=== PATIENT | female | born 1990 | race Caucasian/White ===

== ENCOUNTER 2017-12-18 12:20 | Emergency (ER) | payer OTHER ==
[2017-12-18 13:25] VITALS: BP 128/98
--- NOTE | 2017-12-18 14:01 | ED ---
Complex/Multi-Sys Presentation - HPI Summary HPI Summary: Patient is a 27-year-old female presenting to the ED with a variety of complaints. She states she has been taking Suboxone for about 3 weeks and a beta jai for about 4 weeks and since that time, feels like she has been developing right arm pain, posterior neck tenderness, bilateral leg swelling and face swelling. She states she has excess fatigue as well. She endorses a history of carpal tunnel as well as shooting heroin in the right arm and neck pain years. She states she has anxiety about her health and understands all this could be nothing, she wanted to make sure that she was not "dying." - History Of Current Complaint Chief Complaint: EDGeneral Time Seen by Provider: 12/18/17 12:25 Hx Obtained From: Patient Onset/Duration: Sudden Onset Timing: Constant Severity Currently: Moderate Severity Initially: Moderate Associated Signs And Symptoms: Negative: Confusion, Agitation, Dizziness, Weakness - Allergies/Home Medications Allergies/Adverse Reactions: Allergies Allergy/AdvReac Type Severity Reaction Status Date / Time No Known Allergies Allergy Verified 12/18/17 12:23 PMH/Surg Hx/FS Hx/Imm Hx Previously Healthy: Yes - Immunization History Hx Pertussis Vaccination: No Immunizations Up to Date: Yes Infectious Disease History: No Infectious Disease History: Denies: Traveled Outside the [place] in Last 30 Days - Social History Occupation: Unemployed Lives: Alone - [employer] Alcohol Use: None Hx Substance Use: No Substance Use Type: Reports: None Smoking Status (MU): Former Smoker Review of Systems Negative: Fever, Chills Negative: Palpitations, Chest Pain Negative: Shortness Of Breath, Cough Negative: Abdominal Pain, Vomiting, Diarrhea, Nausea Genitourinary: Negative Positive: no symptoms reported, see HPI Positive: Myalgia - R arm pain x 3 months. Negative: Arthralgia Positive: Other - swelling in feet bilaterally Neurological: Negative All Other Systems Reviewed And Are Negative: Yes Physical Exam Triage Information Reviewed: Yes Vital Signs On Initial Exam: Initial Vitals Temp Pulse Resp BP Pulse Ox 97.5 F 67 14 134/94 96 12/18/17 12:23 12/18/17 12:23 12/18/17 12:23 12/18/17 12:23 12/18/17 12:23 Vital Signs Reviewed: Yes Appearance: Positive: Well-Appearing, Well-Nourished Skin: Positive: Warm, Skin Color Reflects Adequate Perfusion Head/Face: Positive: Normal Head/Face Inspection Eyes: Positive: EOMI, MARÍA, Conjunctiva Clear Neck: Positive: Supple, No Lymphadenopathy Respiratory/Lung Sounds: Positive: Clear to Auscultation, Breath Sounds Present Cardiovascular: Positive: RRR, Pulses are Symmetrical in both Upper and Lower Extremities Musculoskeletal: Positive: Normal, Strength/ROM Intact Neurological: Positive: Sensory/Motor Intact, Alert, Oriented to Person Place, Time, Speech Normal Psychiatric: Positive: Normal AVPU Assessment: Alert Diagnostics - Vital Signs Vital Signs Temp Pulse Resp BP Pulse Ox 12/18/17 13:24 98.0 F 86 18 128/98 97 12/18/17 12:36 74 11 98 12/18/17 12:23 97.5 F 67 14 134/94 96 - Laboratory Lab Statement: Any lab studies that have been ordered have been reviewed, and results considered in the medical decision making process. Complex Multi-Symp Course/Dx Course Of Treatment: On physical examination, there is no evidence of face or leg swelling. The tenderness over the maxillary sinuses. No tenderness to the posterior cervical spine or bilateral arms. EOMI/PERRLA. TMs without erythema or signs of infection. Full range of motion bilaterally in the upper and lower extremities. No abdominal pain on palpation. Lungs CTA. RRR. Patient appears well and nontoxic. I have reassured her that I find nothing on physical examination which she should be concerned about. She is asking if she should switch from Suboxone to Subutex. I've encouraged her to follow-up with the [facility] C[facility] at [facility] for further evaluation and decision making. Lab work obtained 3 days ago and all WNL, so we'll not repeat today. - Diagnoses Provider Diagnoses: Fatigue Discharge - Sign-Out/Discharge Documenting (check all that apply): Patient Departure - Discharge Plan Condition: Stable Disposition: HOME Referrals: No Primary Care Phys,NOPCP [Primary Care Provider] - Additional Instructions: Continue your at home medications Return for any worsening symptoms Discuss with your SPRING COVERER regarding a change in medications - Billing Disposition and Condition Condition: STABLE Disposition: Home
== END 2017-12-18 13:25 | disposition home or self-care (01) ==
LOC: ED 12:20
DX: R53.83 Other fatigue (principal); Z87.891 Personal history of nicotine dependence
CPT/HCPCS: 99282

== ENCOUNTER 2017-12-27 22:07 | Emergency (ER) | payer OTHER ==
[2017-12-28] MEDS ORDERED: Ketorolac INJ* 60 MG/2 ML VIAL IM ONE (01:46)
--- NOTE | 2017-12-28 02:45 | RAD ---
EXAM: CT Cervical Spine Without Intravenous Contrast EXAM DATE/TIME: 12/28/2017 2:09 AM CLINICAL HISTORY: 27 years old, female; Signs and symptoms; Numbness; Additional info: B/l arm numbness TECHNIQUE: Axial computed tomography images of the cervical spine without intravenous contrast. All CT scans at this facility use at least one of these dose optimization techniques: automated exposure control; mA and/or kV adjustment per patient size (includes targeted exams where dose is matched to clinical indication); or iterative reconstruction. Coronal and sagittal reformatted images were created and reviewed. COMPARISON: No relevant prior studies available. FINDINGS: Vertebrae: No acute fracture or spondylolisthesis. Soft tissues: Unremarkable. DISCS/SPINAL CANAL/NEURAL FORAMINA: C2-C3: No disc herniation. No spinal stenosis. No neural foraminal narrowing. C3-C4: No disc herniation. No spinal stenosis. No neural foraminal narrowing. C4-C5: No disc herniation. No spinal stenosis. No neural foraminal narrowing. C5-C6: There is asymmetrical disc protrusion at C5-C6 on the right causing thecal indentation with moderate right neural foramina narrowing. C6-C7: Central disc protrusion at C6-C7 abutting the ventral surface of the spinal cord. Moderate spinal canal stenosis at C6-C7. C7-T1: There is a small central disc protrusion at C7-T1 effacing the ventral thecal sac. IMPRESSION: There is multilevel disc bulge and protrusion.Asymmetrical disc protrusion at C5-C6 on the right causing thecal indentation with moderate right neural foramina narrowing. Central disc protrusion at C6-C7 abutting the ventral surface of the spinal cord. Moderate spinal canal stenosis at C6-C7. To contact [facility] with a general question: Operations Center - [phone] For direct physician to physician contact: Physician Hotline - [phone] [facility] ([facility] Facility ID #[id number])
[2017-12-28] MEDS ORDERED: predniSONE TAB* 20 MG PO ONE (03:05)
--- NOTE | 2017-12-28 03:16 | ED ---
Upper Extremity Pain - HPI Summary HPI Summary: The pt is a 27 y.o female who is presenting to the [facility] with a chief complaint of upper extremity w eakness. The weakness is reported to be in both upper extremities and she also reports pain in both upper extremities. The pt states that she has had the pain for 10 days. She is currently on flexril and is in rehab. She states that she is going to be tested for lyme disease and will be seeing her PCP. Pain is also reported to be in the middle of the back and the top head. She reports vertigo when laying down. The medication the pt is on is listed in a paper documentation and was seen by the provider. Symptoms alleviated by nothing. - History of Current Complaint Chief Complaint: EDExtremityUpper Stated Complaint: NUMBNESS IN ARMS Time Seen by Provider: 12/28/17 01:46 Hx Obtained From: Patient Aggravating Factor(s): Other - Position Alleviating Factor(s): Nothing Associated Signs & Symptoms: Positive: Other - Vertigo, upper arm pain and upper arm weakness. - Allergies/Home Medications Allergies/Adverse Reactions: Allergies Allergy/AdvReac Type Severity Reaction Status Date / Time No Known Allergies Allergy Verified 12/27/17 22:18 PMH/Surg Hx/FS Hx/Imm Hx Sensory History: Denies: Hx Deafness, Hx Hearing Aid Opthamlomology History: Denies: Hx Legally Blind EENT History: Denies: Hx Deafness Infectious Disease History: No Infectious Disease History: Denies: Traveled Outside the [place] in Last 30 Days - Family History Family History: Reviewed and noncontributory - Social History Alcohol Use: None Hx Substance Use: No Substance Use Type: Reports: None Smoking Status (MU): Former Smoker Review of Systems Constitutional: Negative Eyes: Negative ENT: Negative Cardiovascular: Negative Respiratory: Negative Gastrointestinal: Negative Genitourinary: Negative Musculoskeletal: Other - Upper extremity pain Positive: Other - middle back pain and top of the head pain Skin: Negative Neurological: Other - Upper extermity weakneses, Vertigo Psychological: Normal All Other Systems Reviewed And Are Negative: Yes Physical Exam - Summary Physical Exam Summary: VITAL SIGNS: Reviewed. GENERAL: Patient is a well-developed and nourished (FEMALE) who is lying comfortable in the stretcher. Patient is not in any acute respiratory distress. HEAD AND FACE: No signs of trauma. No ecchymosis, hematomas or skull depressions. No sinus tenderness. EYES: PERRLA, EOMI x 2, No injected conjunctiva, no nystagmus. EARS: Hearing grossly intact. Ear canals and tympanic membranes are within normal limits. MOUTH: Oropharynx within normal limits. NECK: Supple, trachea is midline, no adenopathy, no JVD, no carotid bruit, no c- spine tenderness, neck with full ROM. CHEST: Symmetric, no tenderness at palpation LUNGS: Clear to auscultation bilaterally. No wheezing or crackles. CVS: Regular rate and rhythm, S1 and S2 present, no murmurs or gallops appreciated. ABDOMEN: Soft, non-tender. No signs of distention. No rebound no guarding, and no masses palpated. Bowel sounds are normal. EXTREMITIES: FROM in all major joints, no edema, no cyanosis or clubbing. NEURO: Alert and oriented x 3. No acute neurological deficits. Speech is normal and follows commands. Neuro exam was intact including motor and sensory in the upper arms SKIN: Dry and warm Triage Information Reviewed: Yes Vital Signs On Initial Exam: Initial Vitals Temp Pulse Resp BP Pulse Ox 98.3 F 107 18 127/94 96 12/27/17 22:15 12/27/17 22:15 12/27/17 22:15 12/27/17 22:15 12/27/17 22:15 Vital Signs Reviewed: Yes Diagnostics - Vital Signs Vital Signs Temp Pulse Resp BP Pulse Ox 12/28/17 00:17 97.1 F 86 16 119/67 100 12/27/17 22:15 98.3 F 107 18 127/94 96 - Laboratory Lab Statement: Any lab studies that have been ordered have been reviewed, and results considered in the medical decision making process. - CT Cervical CT CT Interpretation Completed By: Radiologist - Cervical Spine CT reveals There is multilevel disc bulge and protrusion.Asymmetrical disc protrusion at C5-C6 on the right causing thecal indentation with moderate right neural foramina narrowing. Central disc protrusion at C6-C7 abutting the ventral surface of the spinal cord. Moderate spinal canal stenosis at C6-C7. This report is given by a radiologist. The ED Physician has reviewed this report Course/Dx - Course Course Of Treatment: The pt is a 27 y.o female with a chief complaint of upper extremity weakness as well as pain in the same areas. The pt recieved a cervical spine CT which revealed positive findings as per radiologist report. The physical exam showed that the Neuro exam was intact and the motor and sensory in the upper arms were intact as well. The pt will be discharged home with a dx of cervical herniated disk. We discussed discharge plan and a follow up with Neurosurgery (as noted in referral in discharge note). - Diagnoses Provider Diagnoses: Cervical herniated disc Discharge - Sign-Out/Discharge Documenting (check all that apply): Patient Departure - Discharge Home - Discharge Plan Condition: Stable Disposition: HOME Prescriptions: Ibuprofen TAB* [Motrin TAB* 800 MG] 800 mg PO Q6H PRN #30 tab PRN Reason: Pain predniSONE TAB* [Deltasone TAB*] 50 mg PO DAILY #5 tab Patient Education Materials: Cervical Disc Herniation (ED) Referrals: Lee Moore MD [Medical Doctor] - Additional Instructions: RETURN TO THE EMERGENCY DEPARTMENT FOR CHANGING OR WORSENING SYMPTOMS. FOLLOW UP WITH Neurosurgery within 1 to 2 days. - Attestation Statements Document Initiated by Scribe: Yes Documenting Scribe: Miguelangel Walden Provider For Whom Scribe is Documenting (Include Credential): Dr. Sukhdev Mckeon Scribe Attestation: Miguelangel Grant, scribed for Dr. Sukhdev Mckeon on 12/28/17 at 0437.
[2017-12-28 04:18] VITALS: BP 125/74
== END 2017-12-28 04:19 | disposition home or self-care (01) ==
LOC: ED 22:07
DX: M50.20 Other cervical disc displacement, unspecified cervical region (principal); M54.9 Dorsalgia, unspecified; R51 Headache; Z87.891 Personal history of nicotine dependence
CPT/HCPCS: 72125; 96372; 99283; J1885; J7512

== ENCOUNTER 2018-04-25 07:11 | Observation (INO) | payer OTHER ==
[~2018-04-25 07:11] MED LIST: Acetaminophen IV 1GM/100ML * 1,000 MG/100 ML VIAL IVPB ONE; Buffered Lidocaine 1% SYRIN* 1 ML/SYRINGE INTRADERM ONE; Dexamethasone IV* 4 MG/ML 1 ML (4 MG) IV SLOW PU ONE; DiMENhydriNATE IV* 50 MG/ML VIAL IV PUSH PRN; Famotidine IV* 10 MG/ML 2 ML (20 mg) IV ONE; Gabapentin CAP(*) 300 MG PO ONE; Lactated Ringers 1000 ML Bag* 1,000 ML IV SCH; Levalbuterol 0.63MG/3ML NEB* UNIT OF USE INH ONE; Naloxone* 0.4 MG/ML 1 ML VIAL IV PRN; Ondansetron TAB* 4 MG PO ONE; PROCHLORPERAZINE INJ 5 MG/ML 2 ML VIAL IV PRN
[2018-04-25] MEDS ORDERED: Dexamethasone IV* 4 MG/ML 1 ML (4 MG) ONE (07:45)
[2018-04-25] MEDS ORDERED: Famotidine IV* 10 MG/ML 2 ML (20 mg) ONE (07:45)
[2018-04-25] MEDS ORDERED: Ondansetron ODT TAB* 4 MG ONE (07:45)
[2018-04-25] MEDS ORDERED: Levalbuterol 0.63MG/3ML NEB* UNIT OF USE INH ONE (07:46)
[2018-04-25] MEDS ORDERED: ceFAZolin 2 GM PREMIX in ORs 2 GM/50 ML BAG IVPB ONE (07:46)
[2018-04-25] MEDS ORDERED: Gabapentin CAP(*) 300 MG ONE (07:46)
[2018-04-25] MEDS ORDERED: Acetaminophen IV 1GM/100ML * 100 ML ONE (07:50)
[2018-04-25] MEDS ORDERED: Atracurium* 10 MG/ML 10 ML VIAL ONE (08:10)
[2018-04-25] MEDS ORDERED: KETAMINE HCL* 50 MG/ML 10 ML VIAL ONE (08:10)
[2018-04-25] MEDS ORDERED: Midazolam* 1 MG/ML 5 ML VIAL (5 MG) ONE (08:10)
[2018-04-25] MEDS ORDERED: Thrombin 5,000 UNITS* 1 APPLIC KIT - topical use - TOPICAL ONE (09:19)
[2018-04-25] MEDS ORDERED: Bacitracin INJECTION* 50,000 UNITS ONE (09:19)
[2018-04-25] MEDS ORDERED: Lidocain 1% EPI 1:100,000 * 30 ML MDV ONE (09:19)
[2018-04-25] MEDS ORDERED: Lidocaine 2% PF * 5 ML VIAL ONE (10:48)
[2018-04-25] MEDS ORDERED: Propofol* 10 MG/ML 20 ML BTL ONE (10:48)
[2018-04-25] MEDS ORDERED: Glycopyrrolate IV* 0.2 MG/ML 1 ML VIAL ONE (10:48)
[2018-04-25] MEDS ORDERED: Lidocaine 2% PF* 10 ML AMP ONE (10:48)
[2018-04-25] MEDS ORDERED: Ketorolac INJ* 30 MG/ML 1 ML VIAL ONE (10:48)
[2018-04-25] MEDS ORDERED: EPHEDrine (Pressors)* 50 MG/ML VIAL ONE (10:48)
[2018-04-25] MEDS ORDERED: Magnesium Hydroxide LIQ* 30 ML UDC PO PRN (11:03)
[2018-04-25] MEDS ORDERED: Ondansetron INJ* 2 MG/ML VIAL IV PRN (11:03)
[2018-04-25] MEDS ORDERED: Polyethylene Glycol 3350* 17 GM PACKET PO PRN (11:06)
[2018-04-25] MEDS ORDERED: Benzocaine/Menthol LOZ* 1 LOZENGE PO PRN (11:28)
[2018-04-25] MEDS ORDERED: Nicotine Inhaler* 10 MG AMP INH PRN (11:28)
[2018-04-25] MEDS ORDERED: Morphine 4 MG/ML VIAL (1 ml) 4 MG/ML VIAL ONE (11:41)
[2018-04-25] MEDS ORDERED: Cyclobenzaprine TAB* 10 MG ONE (13:29)
[2018-04-25] MEDS: Nicotine PATCH 21 MG/24 HR* PATCH TRANSDERM SCH (13:34)
[2018-04-25] MEDS: Lactated Ringers 1000 ML Bag* 1,000 ML IV SCH (13:34)
[2018-04-25] MEDS: Ibuprofen TAB* 600 MG PO PRN (14:52)
[2018-04-25] MEDS ORDERED: Buprenorp/Nalox 8-2 MG SL TAB.SL SL SCH (16:00)
[2018-04-25] MEDS ORDERED: Buprenorp/Nalox 8-2 MG FILM 1 EACH SL FILM ONE (16:00)
[2018-04-25] MEDS: Acetaminophen TAB* 325 MG PO PRN (16:03)
[2018-04-25] MEDS: Propranolol TAB* 10 MG PO SCH (20:03)
[2018-04-25] MEDS: Cyclobenzaprine TAB* 10 MG PO SCH (20:03)
[2018-04-25] MEDS ORDERED: QUEtiapine TAB* 25 MG PO SCH (21:00)
[2018-04-26] MEDS: Lactated Ringers 1000 ML Bag* 1,000 ML IV SCH (02:48)
[2018-04-26] MEDS: Ibuprofen TAB* 600 MG PO PRN (05:12)
[2018-04-26] MEDS ORDERED: Nicotine Patch Removal NOTE FOLLOW UP SCH (06:00)
[2018-04-26] MEDS: Acetaminophen TAB* 325 MG PO PRN (07:37)
--- NOTE | 2018-04-26 07:44 | PN ---
Progress Note - Progress Note Date of Service: 04/26/18 SOAP: Subjective: [S/p ACD F C5-6, POD #1. Bilateral upper extremity pain, aching, numbness/tingling improving. Reports less frequent, not constant symptoms in UEs. Complains of sore throat with swallowing. Eating soft food and drinking without difficulty. Ambulating independently. Denies headache, nausea.] Objective: [ Vital Signs: Temp Pulse Resp BP Pulse Ox 98.6 F 107 16 104/46 97 04/26/18 04:15 04/26/18 04:15 04/26/18 04:15 04/26/18 04:15 04/26/18 04:15 Wound drain output 04/25/18 04/26/18 04/26/18 22:22 02:50 05:45 Output, SHERI #1 3 2 2 General: Alert, sitting on bedside, comfortable Neuro: Motor and sensory intact Incision: Intact, dressing replaced, drain dc. No swelling, erythema, ecchymosis ] Assessment: [Satisfactory post-op.] Plan: [1. Discharge home today 2. Discharge instructions discussed 3. Follow up with PCP for suboxone management]
[2018-04-26] MEDS: Cyclobenzaprine TAB* 10 MG PO SCH (08:52)
[2018-04-26] MEDS: Propranolol TAB* 10 MG PO SCH (08:52)
[2018-04-26] MEDS: Nicotine PATCH 21 MG/24 HR* PATCH TRANSDERM SCH (08:53)
[2018-04-26] MEDS ORDERED: Buprenorp/Nalox 8-2 MG FILM 1 EACH SL FILM SCH (09:00)
[2018-04-26] MEDS ORDERED: QUEtiapine TAB* 25 MG PO SCH (09:00)
[2018-04-26] MEDS ORDERED: lamoTRIgine TAB(*) 100 MG PO SCH (09:00)
[2018-04-26 10:11] VITALS: BP 126/64
--- NOTE | 2018-05-10 10:48 | OP ---
DATE OF OPERATION: 04/25/18 - ROOM #346 DATE OF : 89 PRIMARY SURGEON: Dr. Jonh Lazo MEDICAL PAYMENT POSTER: MERT Loredo. ANESTHESIA: General. PRE-OP DIAGNOSIS: Herniated nucleus pulposus, C5-6. POST-OP DIAGNOSIS: Herniated nucleus pulposus, C5-6. OPERATIVE PROCEDURE: Anterior cervical diskectomy, C5-6 with placement of biomechanical device, with anterior instrumentation. DESCRIPTION OF PROCEDURE: After satisfactory general anesthesia was obtained, the patient was placed on the operating table in the supine position with the neck supported on a horseshoe headrest and slightly extended. The anterior aspect of the cervical spine was then clipped, prepped, and draped in a sterile manner for anterior cervical exposure and a skin incision outlined three fingerbreadths above the clavicle beginning at the midline and extending to the right side at a distance of 3 cm in a natural crease. This incision was infiltrated with 1% Xylocaine with epinephrine after which it was turned down sharply to the level of the subcutaneous tissues. A superiorly and inferiorly based subcutaneous flap was then fashioned and the platysmal muscle divided along the direction of its fibers. Utilizing a combination of sharp and blunt dissection, a dissection plane was carried out between the sternocleidomastoid and strap muscles and carried down to the anterior aspect of the spine. An additional x-ray was obtained verifying localization of the C5-6 level. After which, the next step in the procedure was detachment of the longus colli muscles and placement of self-retaining retractors. The anterior two- third of the disk material were then removed with a combination of the [place] drill, angled curettes and pituitary rongeurs. [place] distractor pins were then placed in the C5 and C6 vertebral bodies and gentle disk space distraction applied. At this point of the procedure, the operating microscope was brought into the field and the remainder of the procedure done under arthroscopic visualization. Utilizing microdissection, the remaining portion of the disk was taken out. Projecting back on the right side was multiple subcapsular fragments extending out into the neural foramen. These fragments were removed and the dissection carried back into a normal drill was encountered. At the conclusion of the decompression, the nerve hook ran out readily with both C6 nerve roots. The interspace was then prepared for receipt of a PEEK that was filled bony matrix and slightly countersunk. This measured 7-mm in height. A Medtronic ZEVO plate was then selected to span from C5 to C6 and was secured into position with 13 mm of self-drilling screws. A post-construct x-ray was taken showing good graft and screw placement. The wound was then thoroughly irrigated after which drain was placed in the prevertebral space and tunneled out towards the right side. The subcutaneous tissue was then reapproximated with 3-0 Vicryl and the skin closed with Steri-Strips. Estimated blood loss was less than 50 cc and final sponge, padding, and needle counts were correct. The patient was taken to the recovery room, extubated, and in stable condition. [id number]/[facility] #: [id number] MONIE
--- NOTE | 2018-05-24 14:47 | DS ---
DISCHARGE SUMMARY: DATE OF ADMISSION: 04/25/18 DATE OF DISCHARGE: 04/26/18 ATTENDING PHYSICIAN: Dr. Lazo.* (DICTATED BY MERT CHANG) DISCHARGE DIAGNOSES: 1. Herniated nucleus pulposus C5-6. 2. History of substance abuse. SPECIAL PROCEDURE: Anterior cervical diskectomy C5-6 and fusion with anterior instrumentation. HOSPITAL COURSE: This 28-year-old female was seen in the office with cervical radiculopathy that had not improved with conservative treatment including medication and therapy. MRI showed herniated disk at C5-6. She elected to undergo surgical intervention. On the day of admission, she was to taken to surgery where under general anesthesia, an anterior cervical diskectomy and fusion at C5-6 operation was carried out. Postoperatively, she complained of neck pain, although the upper extremities symptoms were improving. She was eating soft foods and drinking liquids without difficulty. She was ambulating independently. She denied nausea and headache. On the first postoperative day , the wound drain was discontinued and the patient was discharged home to the care of her dad. She was taking Suboxone and Tylenol and ibuprofen for pain management, which she continued postoperatively while at home. FOLLOWUP: She will be seen in the office in 2 weeks at the [facility]. DISCHARGE INSTRUCTIONS: Wound care and activity level were discussed with the patient and information was provided. MERT CHANG [id number]/[facility] #: [id number] MTDD
== END 2018-04-26 12:00 | disposition home or self-care (01) ==
LOC: OR 07:11 → SSU 13:22
PROVIDERS: ADMIT Neurological Surgery; ATTEND Neurological Surgery
DX: M50.122 Cervical disc disorder at C5-C6 level with radiculopathy (principal); M50.222 Other cervical disc displacement at C5-C6 level; M54.2 Cervicalgia; F17.210 Nicotine dependence, cigarettes, uncomplicated
CPT/HCPCS: 36430; 72020; 81025; A9270-GY; C1713; C1776; G0378; J0690; J1100; J1885; J2001; J2250; J2270; J2704